=== PATIENT | female | born 1945 | race Caucasian/White ===

== ENCOUNTER 2025-03-25 09:02 | Outpatient (CLI) | payer OTHER | END 2025-03-25 09:12 | disposition home or self-care (01) | LOC: MRI 09:02 | PROVIDERS: ATTEND Specialist | DX: R19.00 Intra-abdominal and pelvic swelling, mass and lump, unspecified site (principal) | CPT/HCPCS: 72197; 74183; Q9965 ==

== ENCOUNTER → 2025-03-25 09:55 | Outpatient (CLI) | payer OTHER ==
[2025-03-25 10:54] LABS: CREATININE SERUM 0.75 mg/dL (0.55-1.02); GFR 74.54
== END | disposition home or self-care (01) ==
LOC: LAB 09:55
PROVIDERS: ATTEND Radiology Diagnostic Radiology
DX: R19.00 Intra-abdominal and pelvic swelling, mass and lump, unspecified site (principal)